=== PATIENT | female | born 1995 | race Caucasian/White ===

== ENCOUNTER 2017-08-27 20:13 | Emergency (ER) | payer OTHER ==
[~2017-08-27] VITALS: Ht 167.6 cm; Wt 54.4 kg
== END 2017-08-27 22:23 | disposition home or self-care (01) ==
LOC: ED 20:13
DX: R51 Headache (principal); F17.200 Nicotine dependence, unspecified, uncomplicated; Z88.5 Allergy status to narcotic agent; Z88.1 Allergy status to other antibiotic agents
CPT/HCPCS: 80053; 81001; 84703; 85025; 96361; 96374; 96375; 99283; J1885; J2405; J7030

== ENCOUNTER 2017-09-10 10:58 | Emergency (ER) | payer OTHER ==
[~2017-09-10] VITALS: Ht 167.6 cm; Wt 54.4 kg
[2017-09-10] MEDS ORDERED: PRENATA CHEWAB1 EACH PO (11:15)
[2017-09-10] MEDS ORDERED: PRENATABS RX T1 EACH PO (12:53)
== END 2017-09-10 13:08 | disposition home or self-care (01) ==
LOC: ED 10:58
DX: O20.9 Hemorrhage in early pregnancy, unspecified (principal); O99.331 Smoking (tobacco) complicating pregnancy, first trimester; F17.200 Nicotine dependence, unspecified, uncomplicated; Z88.5 Allergy status to narcotic agent; Z88.0 Allergy status to penicillin; Z79.899 Other long term (current) drug therapy; Z3A.01 Less than 8 weeks gestation of pregnancy
CPT/HCPCS: 76801; 76817; 80053; 81001; 84702; 85025; 86900; 86901; 99284

== ENCOUNTER 2017-12-23 15:45 | Emergency (ER) | payer OTHER ==
[~2017-12-23] VITALS: Ht 167.6 cm; Wt 59.0 kg
[~2017-12-23 15:45] MED LIST: PRENATA CHEWAB1 EACH PO; PRENATABS RX T1 EACH PO
== END 2017-12-23 16:11 | disposition home or self-care (01) ==
LOC: ED 15:45
DX: O9A.212 Injury, poisoning and certain other consequences of external causes complicating pregnancy, second trimester (principal); T23.222A Burn of second degree of single left finger (nail) except thumb, initial encounter; T31.0 Burns involving less than 10% of body surface; O99.332 Smoking (tobacco) complicating pregnancy, second trimester; F17.200 Nicotine dependence, unspecified, uncomplicated; Z3A.21 21 weeks gestation of pregnancy; Z88.0 Allergy status to penicillin; Z88.5 Allergy status to narcotic agent; Z79.899 Other long term (current) drug therapy; X19.XXXA Contact with other heat and hot substances, initial encounter; Y92.89 Other specified places as the place of occurrence of the external cause
CPT/HCPCS: 99282

== ENCOUNTER 2018-03-19 12:24 | Emergency (ER) | payer OTHER ==
[~2018-03-19] VITALS: Ht 167.6 cm; Wt 65.5 kg
== END 2018-03-19 13:44 | disposition left against medical advice (07) ==
LOC: ED 12:24
DX: Z53.21 Procedure and treatment not carried out due to patient leaving prior to being seen by health care provider (principal)

== ENCOUNTER 2018-04-20 17:05 | Inpatient (IN) | payer OTHER ==
--- NOTE | 2018-04-20 22:13 | PR ---
[facility] [address] [facility] [place], [place] [address] Signed Progress Notes IP Datetime Report Generated by CPN: 04/20/2018 22:12 PROGRESS NOTES: [id number] Impression: Normal progression of labor Procedures: Artificial ROM Plan: Anticipate Vaginal Delivery VITAL SIGNS: [id number] Vital Signs: Reviewed; Within Normal Limits EXAM: [id number] Dilatation: 8.0 Effacement: 100 Station: 0 Uterine Contractions: every 2-5 minutes MEMBRANES: [id number] Membrane Status: Ruptured Amniotic Fluid Color: Clear ROM Note: AROM without difficulty Comments: Tolerating contractions well with Epidural Fetus A: [id number] FHR Baseline: 130 Variability: Moderate 6-25bpm Accelerations: 15X15 Presentation: Vertex Fetus B: [id number] Signing Physician: Estevan Damon MD Copies: ~ *Electronically Signed* 04/20/182211 ESTEVAN DAMON MD PATIENT NAME: CHELSIE CHILD CY PROGRESS NOTE DATE OF : 93 PHYSICIAN: ESTEVAN DAMON MD RPT #: [id number] REPORT IS CONFIDENTIAL AND NOT TO BE RELEASED WITHOUT AUTHORIZATION
--- NOTE | 2018-04-21 12:23 | PR ---
[facility] [address] [facility] [place] [address] Signed PP Progress Notes Datetime Report Generated by CPN: 04/21/2018 12:22 SUBJECTIVE: [id number] Pain: Within normal limits Nausea/Vomiting: Denies Vital Signs: [id number] Vital Signs: Reviewed; Within Normal Limits EXAM: [id number] Abdomen/Uterus: Normal Lochia: Normal Extremities: Normal IMPRESSION/PLAN/PROCEDURES: [id number] Impression: Normal progression Plan: Continue present management Procedures: None Progress Notes: Doing well, withtout complaint. Signing Physician: Estevan Damon MD Copies: ~ *Electronically Signed* 04/21/18 1222 ESTEVAN DAMON MD PATIENT NAME: CHELSIE CHILD CY PROGRESS NOTE DATE OF : 93 PHYSICIAN: ESTEVAN DAMON MD RPT #: [id number] REPORT IS CONFIDENTIAL AND NOT TO BE RELEASED WITHOUT AUTHORIZATION
--- NOTE | 2018-04-21 12:24 | PR ---
[facility] [address] [facility] [place] [address] Signed PP Progress Notes Datetime Report Generated by CPN: 04/21/2018 12:24 SUBJECTIVE: [id number] Pain: Within normal limits Nausea/Vomiting: Denies Vital Signs: [id number] Vital Signs: Reviewed; Within Normal Limits Notable Details: 12.4/35.9 EXAM: [id number] Abdomen/Uterus: Normal Lochia: Normal Extremities: Normal IMPRESSION/PLAN/PROCEDURES: [id number] Impression: Normal progression Plan: Continue present management Procedures: None Progress Notes: Doing well, withtout complaint. Signing Physician: Nora Damon MD Copies: ~ *Electronically Signed* 04/21/18 1224 NORA ADMON MD PATIENT NAME: CHELSIE CHILD PROGRESS NOTE DATE OF : 93 PHYSICIAN: NORA DAMON MD RPT #: [id number] REPORT IS CONFIDENTIAL AND NOT TO BE RELEASED WITHOUT AUTHORIZATION
--- NOTE | 2018-04-22 09:55 | PR ---
[facility] [address] [facility] [place] [address] Signed PP Progress Notes Datetime Report Generated by CPN: 04/22/2018 09:54 SUBJECTIVE: [id number] Pain: Within normal limits Nausea/Vomiting: Denies Bowel Movement: Yes Vital Signs: L0687934 Vital Signs: Reviewed; Within Normal Limits Notable Details: 12.4/35.9 EXAM: [id number] Abdomen/Uterus: Normal Lochia: Normal Extremities: Normal IMPRESSION/PLAN/PROCEDURES: [id number] Impression: Normal progression Plan: Discharge Procedures: None Progress Notes: Doing well, without complaint. Ready to go home. Signing Physician: Nora Damon MD Copies: ~ *Electronically Signed* 04/22/18 0954 NORA DAMON MD PATIENT NAME: CHELSIE CHILD PROGRESS NOTE DATE OF : 93 PHYSICIAN: NORA DAMON MD RPT #: [id number] REPORT IS CONFIDENTIAL AND NOT TO BE RELEASED WITHOUT AUTHORIZATION
== END 2018-04-22 12:50 | disposition home or self-care (01) | DRG 775 ==
LOC: FBCO 17:05 → FBC 18:25 → FBCO 05-02 10:26
PROVIDERS: ADMIT General Practice
PROC: 10E0XZZ Delivery of Products of Conception, External Approach (ICD-10-PCS; principal; 2018-04-20)
PROC: 0KQM0ZZ Repair Perineum Muscle, Open Approach (ICD-10-PCS; 2018-04-20)
PROC: 0UQMXZZ Repair Vulva, External Approach (ICD-10-PCS; 2018-04-20)
PROC: 10907ZC Drainage of Amniotic Fluid, Therapeutic from Products of Conception, Via Natural or Artificial Opening (ICD-10-PCS; 2018-04-20)
PROC: 00HU33Z Insertion of Infusion Device into Spinal Canal, Percutaneous Approach (ICD-10-PCS; 2018-04-20)
PROC: 3E0R3BZ Introduction of Anesthetic Agent into Spinal Canal, Percutaneous Approach (ICD-10-PCS; 2018-04-20)
DX: O99.324 Drug use complicating childbirth (principal); O99.354 Diseases of the nervous system complicating childbirth; G43.109 Migraine with aura, not intractable, without status migrainosus; F12.90 Cannabis use, unspecified, uncomplicated; O99.334 Smoking (tobacco) complicating childbirth; F17.210 Nicotine dependence, cigarettes, uncomplicated; O70.1 Second degree perineal laceration during delivery; Z79.899 Other long term (current) drug therapy; Z88.5 Allergy status to narcotic agent; Z88.0 Allergy status to penicillin; Z3A.38 38 weeks gestation of pregnancy; Z37.0 Single live birth
CPT/HCPCS: 01960; 36415; 59025; 85027; 99213; J2590

== ENCOUNTER 2018-08-02 05:12 | Emergency (ER) | payer OTHER ==
[~2018-08-02] VITALS: Ht 167.6 cm; Wt 57.1 kg
--- OUTSIDE RECORDS SUMMARY | 2018-08-02 05:18 | XMS ---
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 Details: [facility] CRITERIA MET - Group [facility] CARE PROVIDERS Marlon Roque DO [facility] 07/13/2015-Current PHONE: Unknown LORA España [facility] 07/13/2015-Current PHONE: Unknown SENG [facility] Current PROVIDERS PHONE: Unknown [facility] PHONE: Unknown ERICK GRAFF ND [facility] 02/05/2016-Current PHONE: [phone] Primary Care Primary Care Current PHONE: [phone] Adriana has no Care Guidelines for this patient. Carolyn VISIT COUNT (12 MO.) 5 [facility] TOTAL 5 NOTE: Visits indicate total known visits. ED/UCC VISIT TRACKING (12 MO.) 08/02/2018 05:13 [facility] [place] TYPE: Emergency COMPLAINT: - FLU SYMPTOMS 03/19/2018 12:26 [facility] [place] TYPE: Emergency COMPLAINT: - HEADACHE/DIZZINESS/VISION PROBLEMS DIAGNOSES: - Procedure and treatment not carried out due to patient leaving prior to being seen by health care provider - Headache - Other specified diseases and conditions complicating , childbirth and the puerperium - Dizziness and giddiness - 33 weeks gestation of 12/23/2017 15:46 [facility] [place] TYPE: Emergency COMPLAINT: - R HAND INJURY,WORK RELATED DIAGNOSES: - 21 weeks gestation of - Injury, poisoning and certain other consequences of external causes complicating , second trimester - Stiles involving less than 10% of body surface - Allergy status to narcotic agent status - Allergy status to penicillin - Nicotine dependence, unspecified, uncomplicated - Contact with other heat and hot substances, initial encounter - Smoking (tobacco) complicating , second trimester - Other tank terminal gauger (current) drug therapy - Other specified places as the place of occurrence of the external cause - Burn of second degree of single left finger (nail) except thumb, initial encounter - Unspecified injury of left wrist, hand and finger(s), initial encounter 09/10/2017 10:59 [facility] [place] TYPE: Emergency COMPLAINT: - 7 WKS /VAGINAL BLEEDING DIAGNOSES: - Smoking (tobacco) complicating , first trimester - Hemorrhage in early , unspecified - Allergy status to narcotic agent status - Other usp (current) drug therapy - Spotting complicating , first trimester - Nicotine dependence, unspecified, uncomplicated - Allergy status to penicillin - Less than 8 weeks gestation of 08/27/2017 20:14 [facility] [place] TYPE: Emergency COMPLAINT: - HEADACHE DIAGNOSES: - Nicotine dependence, unspecified, uncomplicated - Allergy status to narcotic agent status - Allergy status to other antibiotic agents status - Paresthesia of skin - Headache INPATIENT VISIT TRACKING (12 MO.) No inpatient visits to display in this time frame [email or web address]
[2018-08-02] MEDS ORDERED: ZOFRAN ODT4 MG PO (05:51)
== END 2018-08-02 06:43 | disposition home or self-care (01) ==
LOC: ED 05:12
DX: B34.9 Viral infection, unspecified (principal); G43.909 Migraine, unspecified, not intractable, without status migrainosus; F17.200 Nicotine dependence, unspecified, uncomplicated; Z88.0 Allergy status to penicillin; Z88.5 Allergy status to narcotic agent
CPT/HCPCS: 81001; 84703; 99284

== ENCOUNTER 2019-03-12 11:05 | Emergency (ER) | payer OTHER ==
[~2019-03-12] VITALS: Ht 167.6 cm; Wt 57.1 kg
[~2019-03-12 11:05] MED LIST changes: +ZOFRAN ODT4 MG PO
--- OUTSIDE RECORDS SUMMARY | 2019-03-12 11:08 | XMS ---
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 Details: [facility] CRITERIA MET - Group Notification - PDMP CARE PROVIDERS MANDA PAULINO [facility] 07/13/2015-Current PHONE: [phone] LORA España [facility] 07/13/2015-Current PHONE: Unknown SENG NGUYEN [facility] PHONE: Unknown [facility] PHONE: Unknown ERICK GRAFF ND Primary Care 02/05/2016-Current PHONE: [phone] Primary Care Primary Care Current PHONE: Unknown Adriana has no Care Guidelines for this patient. Carolyn VISIT COUNT (12 MO.) [address] [facility] TOTAL 3 NOTE: Visits indicate total known visits. ED/UCC VISIT TRACKING (12 MO.) 03/12/2019 11:06 [facility] [place] TYPE: Emergency COMPLAINT: - HEADACHE 08/02/2018 05:13 [facility] [place] TYPE: Emergency COMPLAINT: - FLU SYMPTOMS DIAGNOSES: - Diarrhea, unspecified - Allergy status to narcotic agent status - Migraine, unspecified, not intractable, without status migrainosus - Nicotine dependence, unspecified, uncomplicated - Allergy status to penicillin - Viral infection, unspecified 03/19/2018 12:26 [facility] [place] TYPE: Emergency COMPLAINT: - HEADACHE/DIZZINESS/VISION PROBLEMS DIAGNOSES: - Procedure and treatment not carried out due to patient leaving prior to being seen by health care provider - Headache - Other specified diseases and conditions complicating , childbirth and the puerperium - Dizziness and giddiness - 33 weeks gestation of INPATIENT VISIT TRACKING (12 MO.) No inpatient visits to display in this time frame [email or web address]
[2019-03-12] MEDS ORDERED: SUMATRIPTAN SUC50 MG PO (11:16)
[2019-03-12] MEDS ORDERED: IBUPROFEN800 MG PO (11:17)
== END 2019-03-12 12:44 | disposition home or self-care (01) ==
LOC: ED 11:05
DX: G43.909 Migraine, unspecified, not intractable, without status migrainosus (principal); F17.200 Nicotine dependence, unspecified, uncomplicated; Z88.0 Allergy status to penicillin; Z88.5 Allergy status to narcotic agent; Z79.899 Other long term (current) drug therapy
CPT/HCPCS: 96361; 96374; 96375; 99283-25; J0780; J1100; J1200; J1885; J7030

== ENCOUNTER 2019-06-29 15:35 | Emergency (ER) | payer OTHER ==
[~2019-06-29] VITALS: Ht 167.6 cm; Wt 54.4 kg
[~2019-06-29 15:35] MED LIST changes: +IBUPROFEN800 MG PO; +SUMATRIPTAN SUC50 MG PO
--- OUTSIDE RECORDS SUMMARY | 2019-06-29 15:38 | XMS ---
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 Details: [facility] CRITERIA MET - Group Notification CARE PROVIDERS MANDA PAULINO Primary [facility] 07/13/2015-Current PHONE: Unknown LORA España [facility] 07/13/2015-Current PHONE: Unknown [facility] Primary Care Current OR PHONE: Unknown [facility] PHONE: Unknown ERICK GRAFF ND Primary Care 02/05/2016-Current PHONE: [phone] Primary Care Primary Care Current PHONE: Unknown Adriana has no Care Guidelines for this patient. Carolyn VISIT COUNT (12 MO.) [address] [facility] TOTAL 3 NOTE: Visits indicate total known visits. ED/UCC VISIT TRACKING (12 MO.) 06/29/2019 15:36 [facility] [place] TYPE: Emergency COMPLAINT: - NECK PAIN 03/12/2019 11:06 [facility] [place] TYPE: Emergency COMPLAINT: - HEADACHE DIAGNOSES: - Allergy status to narcotic agent status - Headache - Allergy status to penicillin - Nicotine dependence, unspecified, uncomplicated - Migraine, unspecified, not intractable, without status migrainosus - Other termite control service representative (current) drug therapy 08/02/2018 05:13 [facility] [place] TYPE: Emergency COMPLAINT: - FLU SYMPTOMS DIAGNOSES: - Diarrhea, unspecified - Allergy status to narcotic agent status - Migraine, unspecified, not intractable, without status migrainosus - Nicotine dependence, unspecified, uncomplicated - Allergy status to penicillin - Viral infection, unspecified INPATIENT VISIT TRACKING (12 MO.) No inpatient visits to display in this time frame [email or web address]
[2019-06-29] MEDS ORDERED: CYCLOBENZAPRINE10 MG PO (18:53)
== END 2019-06-29 19:13 | disposition home or self-care (01) ==
LOC: ED 15:35
DX: M62.838 Other muscle spasm (principal); R51 Headache; F17.200 Nicotine dependence, unspecified, uncomplicated; Z88.0 Allergy status to penicillin; Z88.5 Allergy status to narcotic agent
CPT/HCPCS: 70492; 80053; 84443; 85025; 96374; 99284-25; J1885

== ENCOUNTER 2020-07-11 22:01 | Inpatient (IN) | payer OTHER ==
[~2020-07-11 22:01] MED LIST changes: +CLEOCIN HCL300 MG PO; +CYCLOBENZAPRINE10 MG PO; +DOXYCYCLINE HY100 MG PO; +EPIN0.3P IM; +GABAPENTIN100 MG PO; +VENTOLIN HFA18 GM INH
[2020-07-12] MEDS ORDERED: PRENATAL VITAM1 EACH PO (07:10)
--- NOTE | 2020-07-12 12:19 | PR ---
[facility] [address] [facility] [place] [address] Signed PP Progress Notes Datetime Report Generated by CPN: 07/12/2020 12:19 SUBJECTIVE: [id number] Pain: Within Normal Limits Nausea/Vomiting: Denies Vital Signs: [id number] Vital Signs: Reviewed; Within Normal Limits Abdomen/Uterus: Normal Lochia: Normal Extremities: Normal IMPRESSION/PLAN/PROCEDURES: [id number] Impression: Normal Progression Plan: Continue Present Management Procedures: None Progress Notes: STill some vaginal bleeding, will follow to make sure is decreasing. Otherwise, no complaints Signing Physician: Estevan Damon MD Copies: ~ *Electronically Signed* 07/12/20 1219 ESTEVAN DAMON MD PATIENT NAME: CHELSIE CHILD CY PROGRESS NOTE DATE OF : 93 PHYSICIAN: ESTEVAN DAMON MD RPT #: [id number] REPORT IS CONFIDENTIAL AND NOT TO BE RELEASED WITHOUT AUTHORIZATION
--- NOTE | 2020-07-13 12:11 | PR ---
[facility] [address] [facility] [place], [place] [address] Signed PP Progress Notes Datetime Report Generated by CPN: 07/13/2020 12:11 SUBJECTIVE: [id number] Pain: Within Normal Limits Nausea/Vomiting: Denies Bowel Movement: Yes Vital Signs: [id number] Vital Signs: Reviewed; Within Normal Limits Notable Details: PP Hgb/Hct = 11.7/34.3 Abdomen/Uterus: Normal Lochia: Normal Extremities: Normal IMPRESSION/PLAN/PROCEDURES: [id number] Impression: Normal Progression Plan: Continue Present Management Procedures: None Progress Notes: Doing well, without complaint, baby needs to stay until tomorrow due to GBS Pos. Would like to continue with Nicotine Patch to try to stop smoking. Home tomorrow Signing Physician: Nora Damon MD Copies: ~ *Electronically Signed* 07/13/20 1211 NORA DAMON MD PATIENT NAME: CHELSIE CHILD PROGRESS NOTE DATE OF : 93 PHYSICIAN: NORA DAMON MD RPT #: [id number] REPORT IS CONFIDENTIAL AND NOT TO BE RELEASED WITHOUT AUTHORIZATION
--- NOTE | 2020-07-14 07:54 | PR ---
[facility] [address] [facility] [place], [place] [address] Signed PP Progress Notes Datetime Report Generated by CPN: 07/14/2020 07:54 SUBJECTIVE: [id number] Pain: Within Normal Limits Nausea/Vomiting: Denies Bowel Movement: Yes Vital Signs: [id number] Vital Signs: Reviewed; Within Normal Limits Notable Details: PP Hgb/Hct = 11.7/34.3 Cardiovascular: Normal Respiratory: Normal Abdomen/Uterus: Normal Lochia: Normal Vulva/Perineum: Not Done Breasts: Not Done CVA Tenderness: Not Done Extremities: Normal Incision: Not Applicable Progress: Normal Exam Comments: Fundus firm below umbilicus IMPRESSION/PLAN/PROCEDURES: [id number] Impression: Normal Progression Plan: Discharge Procedures: None Progress Notes: Doing well, ready for discharge. Signing Physician: Estevan Damon MD Copies: ~ *Electronically Signed* 07/14/20 0754 ESTEVAN DAMON MD PATIENT NAME: CHELSIE CHILD CY PROGRESS NOTE DATE OF : 93 PHYSICIAN: ESTEVAN DAMON MD RPT #: [id number] REPORT IS CONFIDENTIAL AND NOT TO BE RELEASED WITHOUT AUTHORIZATION
== END 2020-07-14 09:43 | disposition home or self-care (01) | DRG 807 ==
LOC: FBC 22:01
PROVIDERS: ADMIT General Practice; ATTEND General Practice
PROC: 00HU33Z Insertion of Infusion Device into Spinal Canal, Percutaneous Approach (ICD-10-PCS; 2020-07-11)
PROC: 3E0R3BZ Introduction of Anesthetic Agent into Spinal Canal, Percutaneous Approach (ICD-10-PCS; 2020-07-11)
PROC: 10E0XZZ Delivery of Products of Conception, External Approach (ICD-10-PCS; principal; 2020-07-12)
PROC: 0KQM0ZZ Repair Perineum Muscle, Open Approach (ICD-10-PCS; 2020-07-12)
PROC: 0UQMXZZ Repair Vulva, External Approach (ICD-10-PCS; 2020-07-12)
PROC: 10907ZC Drainage of Amniotic Fluid, Therapeutic from Products of Conception, Via Natural or Artificial Opening (ICD-10-PCS; 2020-07-12)
DX: O99.824 Streptococcus B carrier state complicating childbirth (principal); Z37.0 Single live birth; Z3A.39 39 weeks gestation of pregnancy; O62.3 Precipitate labor; O70.1 Second degree perineal laceration during delivery; O71.82 Other specified trauma to perineum and vulva; O99.334 Smoking (tobacco) complicating childbirth; F17.210 Nicotine dependence, cigarettes, uncomplicated; O99.324 Drug use complicating childbirth; F12.90 Cannabis use, unspecified, uncomplicated; O99.52 Diseases of the respiratory system complicating childbirth; J45.990 Exercise induced bronchospasm; O99.354 Diseases of the nervous system complicating childbirth; G43.101 Migraine with aura, not intractable, with status migrainosus; Z88.0 Allergy status to penicillin; Z79.899 Other long term (current) drug therapy
CPT/HCPCS: 01960; 36415; 85027; A9270; J0690; J2590; J2795; J3010; J7121

== ENCOUNTER 2020-09-16 10:42 | Emergency (ER) | payer OTHER ==
[~2020-09-16] VITALS: Ht 167.6 cm; Wt 54.4 kg
[~2020-09-16 10:42] MED LIST changes: +PRENATAL VITAM1 EACH PO
--- OUTSIDE RECORDS SUMMARY | 2020-09-16 10:46 | XMS ---
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 Care History Medical/Surgical 11/22/2019 [facility] Patient has scheduled pre daja follow up care with Dr. Carrillo on 12/08/2019. \T\nbsp; Priyank Squires on 10/18/2019 [facility] - Patient is currently established with [facility]. If patient is seen in the ED during business hours. Please contact CHWs at [facility]. Care Recommendation: If this patient has had 5 or more Emergency Department visits in the last 12 months.\T\nbsp; Patient will require education on the scope and purpose of the ED as an acute care provider not a Primary Care Provider and should not be utilized for chronic conditions.\T\nbsp; These are guidelines and the provider should exercise clinical judgment when providing care. Carolyn VISIT COUNT (12 MO.) 3 [facility] TOTAL 3 NOTE: Visits indicate total known visits. ED/UCC VISIT TRACKING (12 MO.) 09/16/2020 10:43 [facility] [place] TYPE: Emergency COMPLAINT: - HEAD/EAR/CHEST CONGESTION 11/20/2019 12:34 [facility] [place] TYPE: Emergency COMPLAINT: - POSS W/CRAMPING DIAGNOSES: - Lower abdominal pain, unspecified - Personal history of nicotine dependence - Other specified diseases and conditions complicating , childbirth and the puerperium 10/15/2019 20:41 [facility] [place] TYPE: Emergency COMPLAINT: - SOB/BODY ACHES DIAGNOSES: - Other intermediate card tender (current) drug therapy - Nicotine dependence, unspecified, uncomplicated - Allergy status to penicillin - Cough - Acute sinusitis, unspecified - Migraine, unspecified, not intractable, without status migrainosus INPATIENT VISIT TRACKING (12 MO.) 07/11/2020 22:01 [facility] [place] TYPE: [facility] COMPLAINT: - INDUCTION DIAGNOSES: - Other specified trauma to perineum and vulva - Allergy status to penicillin - Streptococcus B carrier state complicating childbirth - Streptococcus B carrier state complicating - 39 weeks gestation of - Second degree perineal laceration during delivery - Nicotine dependence, cigarettes, uncomplicated - Drug use complicating childbirth - Smoking (tobacco) complicating childbirth - Diseases of the respiratory system complicating childbirth - Other intermediate card tender (current) drug therapy - Single live - Cannabis use, unspecified, uncomplicated - Diseases of the nervous system complicating childbirth - Exercise induced bronchospasm - Migraine with aura, not intractable, with status migrainosus - Precipitate labor [email or web address]
[2020-09-16] MEDS ORDERED: NICOTINE PATCH1 EAC1 TD (10:59)
[2020-09-16] MEDS ORDERED: SUMATRIPTAN SUC50 MG PO (10:59)
== END 2020-09-16 13:25 | disposition home or self-care (01) ==
LOC: ED 10:42
DX: J02.9 Acute pharyngitis, unspecified (principal); Z20.828 Contact with and (suspected) exposure to other viral communicable diseases; G43.909 Migraine, unspecified, not intractable, without status migrainosus; G40.909 Epilepsy, unspecified, not intractable, without status epilepticus; Z87.891 Personal history of nicotine dependence; Z79.899 Other long term (current) drug therapy
CPT/HCPCS: 99283; C9803

== ENCOUNTER 2022-02-20 19:09 | Emergency (ER) | payer OTHER ==
[~2022-02-20] VITALS: Ht 167.6 cm; Wt 66.0 kg
[~2022-02-20 19:09] MED LIST changes: +NICOTINE PATCH1 EAC1 TD
--- OUTSIDE RECORDS SUMMARY | 2022-02-20 19:16 | XMS ---
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 Care History Medical/Surgical 11/22/2019 [facility] Patient has scheduled pre adja follow up care with Dr. Carrillo on 12/08/2019. \T\nbsp; Priyank Squires on 10/18/2019 [facility] - Patient is currently established with [facility]. If patient is seen in the ED during business hours. Please contact CHWs at [facility]. Care Recommendation: If this patient has had 5 or more Emergency Department visits in the last 12 months.\T\nbsp; Patient will require education on the scope and purpose of the ED as an acute care provider not a Primary Care Provider and should not be utilized for chronic conditions.\T\nbsp; These are guidelines and the provider should exercise clinical judgment when providing care. ETony VISIT COUNT (12 MO.) 1 [facility] TOTAL 1 NOTE: Visits indicate total known visits. ED/UCC VISIT TRACKING (12 MO.) 02/20/2022 19:09 [facility] [place] TYPE: Emergency COMPLAINT: - EYE PAIN INPATIENT VISIT TRACKING (12 MO.) No inpatient visits to display in this time frame [email or web address]
[2022-02-20] MEDS ORDERED: ERYTHROMYCIN1 GM OP (21:43)
== END 2022-02-20 22:02 | disposition home or self-care (01) ==
LOC: ED 19:09
DX: S05.01XA Injury of conjunctiva and corneal abrasion without foreign body, right eye, initial encounter (principal); W22.8XXA Striking against or struck by other objects, initial encounter; G43.909 Migraine, unspecified, not intractable, without status migrainosus; G40.909 Epilepsy, unspecified, not intractable, without status epilepticus; Z87.891 Personal history of nicotine dependence; Z91.030 Bee allergy status; Z88.0 Allergy status to penicillin; Z88.5 Allergy status to narcotic agent
CPT/HCPCS: 99283

== ENCOUNTER 2022-12-08 10:30 | Emergency (ER) | payer OTHER ==
[~2022-12-08] VITALS: Ht 167.6 cm; Wt 54.7 kg
[~2022-12-08 10:30] MED LIST changes: +ERYTHROMYCIN1 GM OP
--- OUTSIDE RECORDS SUMMARY | 2022-12-08 10:33 | XMS ---
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 Care History Medical/Surgical 11/22/2019 [facility] Patient has scheduled pre daja follow up care with Dr. Carrillo on 12/08/2019. \T\nbsp; Priyank Squires on 10/18/2019 [facility] - Patient is currently established with [facility]. If patient is seen in the ED during business hours. Please contact CHWs at [facility]. Care Recommendation: If this patient has had [...] providing care. ETony VISIT COUNT (12 MO.) 2 [facility] TOTAL 2 NOTE: Visits indicate total known visits. ED/UCC VISIT TRACKING (12 MO.) 12/08/2022 10:31 [facility] [place] TYPE: Emergency COMPLAINT: - R FLANK PAIN, VOMITING, FEVER, SHAKY 02/20/2022 19:[address] [facility] [place] TYPE: Emergency COMPLAINT: - EYE PAIN/INJURY DIAGNOSES: - Migraine, unspecified, not intractable, without status migrainosus - Injury of conjunctiva and corneal abrasion without foreign body, right eye, initial encounter - Bee allergy status - Personal history of nicotine dependence - Allergy status to penicillin - Striking against or struck by other objects, initial encounter - Epilepsy, unspecified, not intractable, without status epilepticus - Allergy status to narcotic agent INPATIENT VISIT TRACKING (12 MO.) No inpatient visits to display in this time frame [email or web address]
[2022-12-08] MEDS ORDERED: ONDANSETRON ODT8 MG PO (14:22)
[2022-12-08] MEDS ORDERED: CEPHALEXIN500 M1 PO (14:22)
== END 2022-12-08 14:32 | disposition home or self-care (01) ==
LOC: ED 10:30
DX: N12 Tubulo-interstitial nephritis, not specified as acute or chronic (principal); G43.909 Migraine, unspecified, not intractable, without status migrainosus; G40.909 Epilepsy, unspecified, not intractable, without status epilepticus; Z87.891 Personal history of nicotine dependence; Z91.030 Bee allergy status; Z88.5 Allergy status to narcotic agent; Z88.0 Allergy status to penicillin
CPT/HCPCS: 36415; 74177; 80053; 81001; 83605; 83880; 84484; 84703; 85025; 96361; 96365; 96375; 96376; 99284-25; A9270; J0696; J1885; J2405; J7030; Q9967

== ENCOUNTER 2024-02-10 11:04 | Emergency (ER) | payer SELFPAY ==
[~2024-02-10] VITALS: Ht 167.6 cm; Wt 56.0 kg
[~2024-02-10 11:04] MED LIST changes: +CEPHALEXIN500 M1 PO; +ONDANSETRON ODT8 MG PO
[2024-02-10] MEDS ORDERED: AMOX TR-K CLV1 EAC1 PO (11:18)
[2024-02-10 11:24] VITALS: BP 95/83
== END 2024-02-10 11:24 | disposition home or self-care (01) ==
LOC: ED 11:04
DX: J02.0 Streptococcal pharyngitis (principal); B95.5 Unspecified streptococcus as the cause of diseases classified elsewhere; R07.89 Other chest pain; Z91.030 Bee allergy status; Z88.5 Allergy status to narcotic agent; Z88.0 Allergy status to penicillin; Z87.891 Personal history of nicotine dependence
CPT/HCPCS: 99282

== ENCOUNTER 2025-02-04 14:15 | Emergency (ER) | payer OTHER ==
[~2025-02-04] VITALS: Ht 167.6 cm; Wt 55.0 kg
[~2025-02-04 14:15] MED LIST changes: +AMOX TR-K CLV1 EAC1 PO
[2025-02-04] MEDS ORDERED: ACETAMINOPHEN 500 MG TAB PO ONE (14:45)
[2025-02-04] MEDS ORDERED: IBUPROFEN 600 MG TAB PO ONE (14:45)
[2025-02-04] MEDS ORDERED: HYDROCODON-ACE1 EA10 PO (15:41)
[2025-02-04 16:09] VITALS: BP 118/69
== END 2025-02-04 16:09 | disposition home or self-care (01) ==
LOC: ED 14:15
DX: S46.912A Strain of unspecified muscle, fascia and tendon at shoulder and upper arm level, left arm, initial encounter (principal); Z87.891 Personal history of nicotine dependence; Z91.030 Bee allergy status; Z88.5 Allergy status to narcotic agent; Z88.0 Allergy status to penicillin; X50.0XXA Overexertion from strenuous movement or load, initial encounter
CPT/HCPCS: 73030; 99283; A9270